=== PATIENT | female | born 1990 ===

== ENCOUNTER 2018-11-12 10:00 | Inpatient (IN) | payer OTHER ==
[~2018-11-12] VITALS: Ht 154.9 cm; Wt 78.5 kg
== END 2018-12-14 10:43 | DRG 807 ==
LOC: OB/GYN 10:00 → LDR 12-12 05:33 → OB/GYN 12-12 06:14 → LDR 12-12 08:23 → OB/GYN 12-12 19:09
PROVIDERS: ADMIT Obstetrics & Gynecology Maternal & Fetal Medicine
PROC: 10E0XZZ Delivery of Products of Conception, External Approach (ICD-10-PCS; principal; 2018-12-12)
PROC: 0KQM0ZZ Repair Perineum Muscle, Open Approach (ICD-10-PCS; 2018-12-12)
PROC: 3E033VJ Introduction of Other Hormone into Peripheral Vein, Percutaneous Approach (ICD-10-PCS; 2018-12-12)
PROC: 4A1HXCZ Monitoring of Products of Conception, Cardiac Rate, External Approach (ICD-10-PCS; 2018-12-12)
DX: O70.1 Second degree perineal laceration during delivery (principal); Z37.0 Single live birth; Z3A.40 40 weeks gestation of pregnancy

== ENCOUNTER 2018-11-29 10:29 | Outpatient (CLI) | payer OTHER | END 2018-11-29 11:03 | disposition home or self-care (01) | LOC: NST 10:29 | DX: Z34.83 Encounter for supervision of other normal pregnancy, third trimester (principal) ==

== ENCOUNTER 2018-12-10 09:24 | Outpatient (CLI) | payer OTHER | END 2018-12-10 09:55 | disposition home or self-care (01) | LOC: NST 09:24 | DX: Z34.83 Encounter for supervision of other normal pregnancy, third trimester (principal) ==